=== PATIENT | female | born 1960 | race Caucasian/White ===

== ENCOUNTER 2017-07-26 23:23 | Emergency (ER) | payer OTHER ==
[2017-07-26 23:43] VITALS: BP 161/96
[2017-07-27] LABS: BILIRUBIN,URINE NEGATIVE (NEGATIVE)
[2017-07-27 00:10] LABS: HCG UR QUAL NEGATIVE; UA w/ MICROSCOPIC CHARGE YES; UR CULTURE IF IND INDICATED; WBC,URINE >25 /HPF (0-5)
[2017-07-27] MEDS ORDERED: SULFAMETH/TRIMETH DS 800/160 MG TABLET PO STA (00:16)
[2017-07-27] MEDS ORDERED: PHENAZOPYRIDINE 100 MG TABLET PO STA (00:16)
--- NOTE | 2017-07-27 00:20 | ED Physician Documentation ---
PD HPI FEMALE - Stated complaint Stated Complaint: FEMALE - Chief complaint Chief Complaint: UTI - History obtained from History obtained from: Patient - History of Present Illness Timing - onset: Yesterday Timing - details: Gradual onset, Still present Associated symptoms: Dysuria, Urinary frequency. No: Fever Similar symptoms before: Work up / diagnostics, Treatment Recently seen: Not recently seen - Additional information Additional information: Patient is a 57 year old female with no significant past medical history who is presenting to the emergency department for dysuria, hematuria and urinary frequency. Patient states that the symptoms started today, relatively suddenly. Patient states that she never has had blood in her urine and it made her worried. Review of Systems Constitutional: denies: Fever, Chills Eyes: reports: Reviewed and negative Ears: reports: Reviewed and negative Nose: reports: Reviewed and negative Throat: reports: Reviewed and negative Cardiac: reports: Reviewed and negative Respiratory: denies: Dyspnea, Cough, Wheezing GI: reports: Nausea. denies: Abdominal Pain, Vomiting, Constipation, Diarrhea : reports: Dysuria, Frequency, Discharge Skin: reports: Reviewed and negative Musculoskeletal: reports: Reviewed and negative Neurologic: reports: Reviewed and negative Psychiatric: reports: Reviewed and negative Immunocompromised: denies: Immunocompromised PD PAST MEDICAL HISTORY - Past Medical History Past Medical History: No Derm: Eczema - Past Surgical History Past Surgical History: Yes /[employer]: Hysterectomy - Present Medications Home Medications: Ambulatory Orders Medication Instructions Recorded Confirmed Phenazopyridine HCl [Pyridium] 200 mg PO TID PRN #6 tablet 07/27/17 Sulfamethox/Trimeth 800/160 1 each PO BID #6 tablet 07/27/17 [Bactrim Ds 800/160] - Allergies Allergies/Adverse Reactions: Allergies Allergy/AdvReac Type Severity Reaction Status Date / Time No Known Drug Allergies Allergy Verified 11/14/13 20:52 - Social History Does the pt smoke?: No Smoking Status: Never smoker Does the pt drink ETOH?: No Does the pt have substance abuse?: No - Immunizations Immunizations are current?: Yes - POLST Patient has POLST: No PD ED PE NORMAL - Vitals Vital signs reviewed: Yes - General General: Alert and oriented X 3, No acute distress, Well developed/nourished - HEENT HEENT: Atraumatic, PERRL - Cardiac Cardiac: RRR, No murmur - Respiratory Respiratory: No respiratory distress - Abdomen Abdomen: Soft, Non tender, Non distended - Derm Derm: Normal color, Warm and dry, No rash - Extremities Extremities: No deformity, No edema - Neuro Neuro: Alert and oriented X 3, No motor deficit, No sensory deficit, Normal speech - Psych Psych: Normal mood PD ED PE EXPANDED - Back Back: No: CVA TTP right, CVA TTP left Results - Vitals Vitals: Vital Signs - 24 hr 07/26/17 23:42 Temperature 37.9 C H Heart Rate 109 H Respiratory 18 Rate Blood Pressure 161/96 H O2 Saturation 98 Oxygen O2 Source Room air - Labs Labs: Laboratory Tests 07/26/17 23:39 Urine Color LT RED Urine Clarity BLOODY Urine pH 6.0 Ur Specific [place] 1.025 Urine Protein 100 H Urine Glucose (UA) NEGATIVE Urine Ketones NEGATIVE Urine Occult Blood LARGE H Urine Nitrite NEGATIVE Urine Bilirubin NEGATIVE Urine Urobilinogen 0.2 (NORMAL) Ur Leukocyte Esterase LARGE H Urine RBC TNTC H Urine WBC >25 H Urine WBC Clumps PRESENT Ur Squamous Epith Cells NONE SEEN Urine Bacteria None Seen Ur Microscopic Review INDICATED Urine Culture Comments INDICATED Urine HCG, Qual NEGATIVE PD MEDICAL DECISION MAKING - ED course Complexity details: reviewed old records, reviewed results, re-evaluated patient , considered differential, d/w patient ED course: Patient was seen and examined at bedside. patient was well appearing and in no acute distress. Patient's urine was collected and was consistent with a uti. Patient was treated with bactrim and pyridium. Patient required no further work up and was stable for discharge with outpatient follow up. Departure - Departure Disposition: 01 Home, Self Care Clinical Impression: Urinary tract infection Condition: Good Instructions: ED UTI Cystitis Female Follow-Up: Abhi Emanuel MD [Primary Care Provider] - Within 3 Days Prescriptions: Phenazopyridine HCl [Pyridium] 200 mg PO TID PRN #6 tablet PRN Reason: dysuria Sulfamethox/Trimeth 800/160 [Bactrim Ds 800/160] 1 each PO BID #6 tablet Comments: Your symptoms today are being caused by a urinary tract infection. You will have your first dose of antibiotics tonight and will be on them for the next three days. it is important that you stay well hydrated and drink plenty of water. You should follow up with your doctor if your symptoms persist for more than the next few days. You may return to the emergency department at any time if necessary for new, worsening or uncontrollable symptoms.
[2017-07-27] MEDS ORDERED: SULFAMETH/TRIMETH DS 800/160 MG TABLET PO ONE (00:25)
[2017-07-27] MEDS ORDERED: PHENAZOPYRIDINE 100 MG TABLET PO ONE (00:25)
== END 2017-07-27 00:28 | disposition home or self-care (01) ==
LOC: ED 23:23
DX: N39.0 Urinary tract infection, site not specified (principal)
CPT/HCPCS: 81001; 81025; 87086; 87181; 99283; A9270; 81003

== ENCOUNTER 2018-02-05 10:27 | Emergency (ER) | payer SELFPAY ==
--- NOTE | 2018-02-05 12:13 | XRAY Report ---
Procedure Date: 02/05/2018 Accession Number: [id number] / [id number] Procedure: XR - Finger(s) RT CPT Code: FULL RESULT: EXAM: RIGHT 4th DIGIT RADIOGRAPHY EXAM DATE: 02/05/2018 11:23 AM. CLINICAL HISTORY: Right hand 4th digit injury. COMPARISON: None. TECHNIQUE: 3 views. FINDINGS: Bones: There is a small cortical defect in the dorsal ulnar side of the base of the distal pharynx of fourth digit, suggesting small avulsion fracture. Joints: There is a hyperflexed in the DIP joint of the fourth digit. No subluxations. Soft Tissues: No radiopaque foreign body. IMPRESSION: Likely small avulsion fracture with minimal displacement in the dorsal ulnar side of the base of the distal pharynx of fourth digit, with Mallet finger deformity. RADIA
[2018-02-05 12:32] VITALS: BP 134/76
--- NOTE | 2018-02-05 12:52 | ED Physician Documentation ---
History of Present Illness - Stated complaint Stated Complaint: FINGER INJ - Chief complaint Chief Complaint: Ext Problem - Additonal information Additional information: 58 f fell and hurt R 4th finger denies oreg Review of Systems Musculoskeletal: reports: Extremity pain PD PAST MEDICAL HISTORY - Past Medical History Past Medical History: No Derm: Eczema - Past Surgical History Past Surgical History: Yes /HOSPITAL CODER: Hysterectomy - Present Medications Home Medications: Ambulatory Orders Medication Instructions Recorded Confirmed Phenazopyridine HCl [Pyridium] 200 mg PO TID PRN #6 tablet 07/27/17 Sulfamethox/Trimeth 800/160 1 each PO BID #6 tablet 07/27/17 [Bactrim Ds 800/160] - Allergies Allergies/Adverse Reactions: Allergies Allergy/AdvReac Type Severity Reaction Status Date / Time No Known Drug Allergies Allergy Verified 11/14/13 20:52 - Social History Does the pt smoke?: No Smoking Status: Never smoker Does the pt drink ETOH?: No Does the pt have substance abuse?: No - Immunizations Immunizations are current?: Yes - POLST Patient has POLST: No PD ED PE NORMAL - Vitals Vital signs reviewed: Yes - Extremities Extremities: Other (R 4th finger unable to extend DIP, sensory and cap refill intact) Results - Vitals Vitals: Vital Signs - 24 hr 18 02/05/18 10:32 12:32 Temperature 36.7 C 36.9 C Heart Rate 99 83 Respiratory 16 18 Rate Blood Pressure 137/90 H 134/76 H O2 Saturation 100 100 Oxygen O2 Source Room air - Rads (name of study) finger Radiology: See rad report (likely small avulsion fx with minimal displacement in dorsal ulnar base distal phalaynx 4th digit c/w mallet finger) PD MEDICAL DECISION MAKING - Sepsis Event Vital Signs: Vital Signs - 24 hr 18 02/05/18 10:32 12:32 Temperature 36.7 C 36.9 C Heart Rate 99 83 Respiratory 16 18 Rate Blood Pressure 137/90 H 134/76 H O2 Saturation 100 100 Oxygen O2 Source Room air Departure - Departure Disposition: 01 Home, Self Care Clinical Impression: Mallet deformity of right ring finger Condition: Good Instructions: ED Fx Mallet Finger Follow-Up: [facility] [Provider Group] Comments: Wear the splint at all times - it is very important not to let the finger droop because that will separate the tendon again and the healing will have to start all over again Follow up with orthopedics next week - call to schedule Tylenol and motrin as needed for the pain
== END 2018-02-05 12:55 | disposition home or self-care (01) ==
LOC: ED 10:27
DX: M20.011 Mallet finger of right finger(s) (principal); W19.XXXA Unspecified fall, initial encounter
CPT/HCPCS: 73140; 99282; 99283

== ENCOUNTER 2021-07-01 10:54 | Outpatient (CLI) | payer OTHER ==
--- NOTE | 2021-07-02 09:52 | Mammography Report ---
BILATERAL DIGITAL SCREENING MAMMOGRAM 3D/2D: 07/01/2021 CLINICAL: Routine screening. Comparison is made to exams dated: 10/01/2015 mammogram and 01/03/2010 mammogram - [facility]. The tissue of both breasts is extremely dense, which lowers the sensitivity of mammography . No significant masses, calcifications, or other findings are seen in either breast. There has been no significant interval change. IMPRESSION: NEGATIVE There is no mammographic evidence of malignancy. A 1 year screening mammogram is recommended. This exam was interpreted at Station ID: [id number]. NOTE: For mammograms, a report in lay terms will be sent to the patient. Approximately 15% of breast malignancies will not be visualized mammographically. In the management of a palpable breast mass, a negative mammogram must not discourage biopsy of a clinically suspicious lesion. Electronically Signed By: Aakash Holbrook M.D. ddp/penrad:07/01/2021 11:52:34 ACR BI-RADS Category 1: Negative 3341F PARENCHYMAL PATTERN: (VD) - The breast(s) demonstrate(s) extremely dense parenchyma, limiting the sen sitivity of mammography. BI-RADS CATEGORY: (1) - 1 RECOMMENDATION: (ANNUAL) - Recommend routine annual screening mammography. 20220702 1 year screening LATERALITY: (B)
== END 2021-07-01 10:55 | disposition home or self-care (01) ==
LOC: DI.N 10:54
DX: Z12.31 Encounter for screening mammogram for malignant neoplasm of breast (principal)

== ENCOUNTER 2021-09-30 09:16 | Day surgery (SDC) | payer OTHER ==
[2021-09-30] MEDS ORDERED: LACTATED RINGERS 1,000 ML IV ONE (09:48)
--- NOTE | 2021-09-30 10:28 | ANESTHESIA ---
Pre-Anesthesia VS, & Labs - Diagnosis screening exam - Procedure colonoscopy Vital Signs: Temp Pulse Resp BP Pulse Ox 36.5 C 96 14 109/70 99 09/30/21 09:58 09/30/21 09:58 09/30/21 09:58 09/30/21 09:58 09/30/21 09:58 Height: 5 ft 2 in Weight (kg): 65.7 kg Body Mass Index: 26.4 BMI Classification: Overweight - NPO Last Fluid Intake: 0650 black coffee - Is Patient ?: No Home Medications and Allergies Allergies/Adverse Reactions: Allergies Allergy/AdvReac Type Severity Reaction Status Date / Time No Known Drug Allergies Allergy Verified 11/14/13 20:52 Anes History & Medical History - Anesthetic History Anesthesia Complications: reports: No previous complications - Medical History Cardiovascular: reports: None Pulmonary: reports: None Gastrointestinal: reports: None Urinary: reports: None Neuro: reports: None Musculoskeletal: reports: None Endocrine/Autoimmune: reports: None Blood Disorders: reports: None Skin: reports: Eczema Smoking Status: Never smoker Psychosocial: reports: No issues indicated History of Cancer?: No - Surgical History Gynecologic: reports: Tubal ligation, Hysterectomy Exam General: Alert, Oriented x3, Cooperative, No acute distress Dental: WNL Mouth Openin Fingerbreadth Neck Mobility: Normal Mallampati classification: III Thyromental Distance: 4-6 cm Mental/Cognitive Status: Alert/Oriented X3, Normal for patient Plan Anesthesia Type: General, Total IV Consent for Procedure(s) Verified and Reviewed: Yes Code Status: Attempt Resuscitation ASA classification: 1-Healthy patient Is this case an emergency?: No
[2021-09-30] MEDS ORDERED: PROPOFOL 500 MG/50 ML 500 MG/50 ML VIAL ONE (10:34)
[2021-09-30] MEDS ORDERED: MIDAZOLAM 2 MG/2 ML VIAL ONE (11:26)
[2021-09-30] MEDS ORDERED: LACTATED RINGERS 350 ML IV ONE (12:11)
--- NOTE | 2021-09-30 12:53 | ANESTHESIA POST OP EVALUATION ---
Anesthesia Post Eval - Post Anesthesia Eval Vitals: Last Vital Signs Temp 36.1 C L 09/30/21 12:25 Pulse 78 09/30/21 12:25 Resp 14 09/30/21 12:25 BP 120/64 09/30/21 12:25 Pulse Ox 98 09/30/21 12:25 CV Function Including HR & BP: Stable Pain Control: Satisfactory Nausea & Vomiting: Negative Mental Status: Baseline Respiratory Status: Airway Patent Hydration Status: Satisfactory Anesthesia Complications: None
[2021-09-30 13:04] VITALS: BP 110/78
== END 2021-09-30 09:17 | disposition home or self-care (01) ==
LOC: SDS 09:16
PROVIDERS: ATTEND Surgery
PROC: 0DBP8ZZ Excision of Rectum, Via Natural or Artificial Opening Endoscopic (ICD-10-PCS; principal; 2021-09-30 10:30)
DX: Z12.11 Encounter for screening for malignant neoplasm of colon (principal); K62.1 Rectal polyp
CPT/HCPCS: 45380; J7120